=== PATIENT | female | born 1935 | race Caucasian/White ===

== ENCOUNTER 2017-06-08 10:41 | Observation (INO) | payer MEDICARE, BC ==
[~2017-06-08] VITALS: Ht 177.8 cm; Wt 80.2 kg
[2017-06-08] VITALS (19 sets, daily range): BP systolic 117–160; BP diastolic 64–92; PULSE 72–88; RESP 15–20; Ht 177.8 cm; Wt 80.2 kg
[2017-06-08] MEDS ORDERED: APIX2.5T PO (11:18)
[2017-06-08] MEDS ORDERED: FURO-110 PO (11:18)
[2017-06-08] MEDS ORDERED: EZET10TA3 PO (11:18)
[2017-06-08] MEDS ORDERED: METF500T4 PO (11:19)
[2017-06-08] MEDS ORDERED: LEVO25TA50 PO (11:19)
[2017-06-08] MEDS ORDERED: FER325 PO (11:20)
[2017-06-08] MEDS ORDERED: MEMA5TAB PO (11:20)
[2017-06-08] MEDS ORDERED: POTA-57 PO (11:21)
[2017-06-08] MEDS ORDERED: DONE5TAB46 PO (11:21)
[2017-06-08] MEDS ORDERED: CNC30T PO (11:22)
[2017-06-08] MEDS ORDERED: LIOT5TAB3 PO (11:23)
[2017-06-08] MEDS ORDERED: FLUT16SP17 NASAL (11:23)
[2017-06-08] MEDS ORDERED: BIFI10.5 PO (11:24)
[2017-06-08] MEDS ORDERED: PANT40TA3 PO (11:24)
[2017-06-08] MEDS ORDERED: DILT180C75 PO (11:25)
[2017-06-08] MEDS ORDERED: PARO30TA48 PO (11:26)
[2017-06-08] MEDS ORDERED: ALPR0.25 PO (11:26)
[2017-06-08 11:35] LABS: BASOPHILS % 0.6 % (0.0-2.0); EOSINOPHILS % 0.8 % (0.0-7.0); HEMATOCRIT 39.3 % (37.0-47.0); LYMPHOCYTES # 1.8 10^3/ul (0.8-2.9); LYMPHOCYTES % 33.3 % (15.0-51.0); MEAN CORPUSCULAR HEMOGLOBIN 29.1 pg (29.0-33.0); MEAN CORPUSCULAR HGB CONC 33.1 g/dl (32.0-37.0); MEAN CORPUSCULAR VOLUME 88.1 fl (82.0-101.0); MEAN PLATELET VOLUME 10.8 fl (7.4-10.4); MONOCYTE # 0.5 10^3/ul (0.3-0.9); MONOCYTES % 8.9 % (0.0-11.0); PLATELET COUNT 182 10^3/UL (140-415); RED BLOOD COUNT 4.46 10^6/ul (4.20-5.40); RED CELL DISTRIBUTION WIDTH 17.2 % (11.5-14.5); WHITE BLOOD COUNT 5.3 10^3/ul (4.8-10.8)
[2017-06-08 11:55] LABS: INR 0.93; PROTIME 12.5 Sec (12.2-14.2)
[2017-06-08 11:56] LABS: PARTIAL THROMBOPLASTIN TIME 26.8 Sec (25.0-35.0)
[2017-06-08 11:57] LABS: ALBUMIN/GLOBULIN RATIO 1.48; BILIRUBIN,INDIRECT 0.5 mg/dl (0-1.1); BILIRUBIN,TOTAL 0.5 mg/dl (0.2-1.3); TOTAL PROTEIN 6.7 g/dl (6.1-8.1)
[2017-06-08 11:59] LABS: CALCIUM 8.9 mg/dl (8.4-10.2); CREATININE 0.55 mg/dl (0.44-1.00); POTASSIUM 4.4 mmol/L (3.5-5.1)
[2017-06-08] MEDS ORDERED: VANCOMYCIN 1 GM in NS 250 ML IVPB SCH (13:10)
[2017-06-08] MEDS ORDERED: FENTAnyl 50 MCG/ML VIAL ONE (13:40)
[2017-06-08] MEDS ORDERED: PROPOFOL 100 ML ONE (13:41)
[2017-06-08] MEDS ORDERED: LIDOCAINE 1% (MDV) 20 ML INJ ONE (13:41)
[2017-06-08] MEDS ORDERED: POLYMYXIN/BACITRACIN 1L IRRIG ONE (13:48)
[2017-06-08] MEDS ORDERED: LIDOCAINE 2%/EPI MPF (SDV) 20 ML VIAL ONE (13:50)
[2017-06-08] MEDS ORDERED: LABETALOL HCL 20MG INJ IV PRN (15:30)
[2017-06-08] MEDS ORDERED: morphine (1 MG/ML) 10ML SYRINGE IV PRN (15:30)
[2017-06-08] MEDS ORDERED: FENTAnyl 50 MCG/ML VIAL IV PRN (15:30)
[2017-06-08] MEDS ORDERED: hydrALAzine 20 MG INJ IV PRN (15:30)
[2017-06-08] MEDS ORDERED: ONDANSETRON 4 MG INJ IV PRN ×2 (15:30→16:00)
--- NOTE | 2017-06-08 15:45 | OPR ---
Date/Time of Note Date/Time of Note DATE: 06/08/17 TIME: 15:40 Operative Report Procedure Date: Jun 08, 2017 Preoperative Diagnosis symptomatic sick sinus syndrome. 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 Risks including but not limited to risk of infection, bleeding complications, anesthesia related complications, NM, CVA, perforation, pneumothorax hemothorax, etc discussed with pt in detail. Patient was brought into into the Residential Property [facility] and placed in supine position. sedation was given. [] Left chest area was prepped and draped in regular sterile fashion. Left subclavian venogram was performed that showed patent subclavian vein and a small cephalic vein. AC groove area was anesthetized using 1% lidocaine with epi. A 3 cm incision was made in the AC groove area. Blunt dissection was carried out. Cephalic vein could not be well isolated. left subclavian vein cannulated using a micropuncture needle . Using modified Seldinger technique an 8 Vietnamese sheath was placed over it. Then , another J-wire into the sheet. The sheath was removed again and a new sheath was placed over the wire into the vein. RV lead was advanced under direct fluoroscopy and placed in the right ventricular low septum . Once a good position was found, threshold was checked which showed excellent threshold. It was screwed into place and threshold were checked again which showed good injury pattern and no diaphragmatic stimulation at 10 V an excellent thresholds. Then the sheath was peeled away. Another 8 Vietnamese sheath was placed over the second wire into the cephalic vein into the subclavian vein. Right atrial lead was advanced under direct fluoroscopy and placed into the right atrial appendage. Once a good position was found it was screwed into place. Thresholds were checked again which showed excellent injury pattern and no diaphragmatic assimilation at 10 V and good thresholds. Right atrial lead sheath was removed. Both leads were tied down using 0 Ethibond suture. Pocket was irrigated with antibiotic solution. At this time electrocardiogram was performed and it appears that the RV lead threshold has increased and R-wave drop once the stylet was removed. It was decided to reposition the RV lead. RV lead was repositioned over direct fluoroscopy multiple times once a perfect position was found and was put into place. Thresholds were checked again with the expectation that after when he was in relation at 10 V. The lead was checked again which showed good thresholds. Then leads were connected into the device. Device was placed into the pocket and sutured using 0 Ethibond suture. Wound was closed with 1 layer of 2.0 Vicryl and 2 layers of 3.0 Vicryl. Steri- Strip was applied and pressure dressing was applied. Patient tolerated procedure well with no complication and was transferred to the recovery room in stable condition. Immediate complication: none Please see physical chart for details regarding pacemaker information and thresholds. Conclusions: Successful implantation of dual-chamber permanent pacemaker SHALOM PRICE MD [facility] SHALOM PRICE MD Jun 08, 2017 15:45
[2017-06-08] MEDS ORDERED: VANCOMYCIN IV PER PHARMACY XX SCH (16:00)
--- NOTE | 2017-06-08 16:32 | RADRPT ---
PROCEDURE: X-ray Chest. CLINICAL INDICATION: Post device insertion. TECHNIQUE: Single view chest x-ray. COMPARISON: None available. FINDINGS: There are multiple radiodensities overlying the chest, which partially limits evaluation. There is a left-sided dual chamber pacemaker in place. There are atherosclerotic changes of the aort a. The cardiomediastinal silhouette is mildly enlarged. The lungs are clear without focal consolida tion, effusion, or pneumothorax. There are no acute osseous abnormalities. IMPRESSION: 1. Mild cardiomegaly. Left-sided dual chamber pacemaker in place. 2. Vascular calcifications consistent with atherosclerosis. RPTAT: HLBP .Bucky Reyes MD, MD Date Time Electronically viewed and signed by .Bucky Reyes MD, on 06/08/2017 16:32 .P/
--- NOTE | 2017-06-08 18:35 | HP ---
DATE OF ADMISSION: 06/08/2017 CHIEF COMPLAINT: Status post pacemaker placement. HISTORY OF PRESENT ILLNESS: This is an 82-year-old female with a past medical history of AFib with tachybrady syndrome, history of hypertension, diabetes, who presented to [facility] to undergo elective pacemaker placement. The patient states that she has been having ongoing atri al fibrillation complicated with episodes of bradycardia and sick sinus syndrome. As a result, her pump room operator, Dr. Price scheduled elective pacemaker placement. The patient underwent pacemaker pl acement successfully without any complications. Postoperatively, the patient was in recovery room, where she had no acute complaints, no chest pain, nausea, vomiting or shortness of breath. PAST MEDICAL HISTORY: History of tachybrady syndrome, history of hypertension, history of diabetes. PAST SURGICAL HISTORY: Multiple surgeries including cholecystectomy, parathyroid removal. ALLERGIES: TO PENICILLIN. SOCIAL HISTORY: Does not drink, smoke or do drugs. FAMILY HISTORY: Noncontributory. MEDICATIONS: The patient's medications have been reviewed and reconciled. REVIEW OF SYSTEMS: A 14-point review of systems was conducted. Pertinent positives stated in HPI, otherwise negative. PHYSICAL EXAMINATION: VITAL SIGNS: Blood pressure is 122/89, respirations 17, pulse 72, temperature 98.7. HEENT: Head is normocephalic. NECK: Supple. HEART: Regular rate. The patient has a dressing over a pacemaker, which is clean, dry and intact. LUNGS: Show diminished breath sounds at the bases. ABDOMEN: Soft, nontender to palpation. No rebound or guarding. EXTREMITIES: Negative for clubbing, cyanosis, edema. DERMATOLOGIC: No rashes. MUSCULOSKELETAL: No joint effusions. NEUROLOGIC: No focal deficits. LABORATORY DATA: Shows BMP and CBC within normal limits. ASSESSMENT AND PLAN: This is an 82-year-old female who presents with: 1. Sick sinus syndrome with tachybrady syndrome. The patient is status post pacemaker placement. P quang is to monitor the patient overnight on telemetry. Continue current medical management and follo w up with cardiology. 2. Diabetes. Continue Accu-Cheks, insulin sliding scale. 3. Hypertension. Continue current blood pressure regimen. 4. Hypothyroidism. Continue Synthroid and Cytomel. 5. Dyslipidemia. Continue Zetia. 6. Coronary artery disease. Continue medical management. 7. Cognitive decline. Continue Aricept and Namenda. 8. Gastrointestinal and deep venous thrombosis prophylaxis. Continue proton pump inhibitor and sequ ential leg squeezers. 9. Anxiety disorder. Continue Ativan. Please note I spent 25 minutes face to face time with the patient. The patient is FULL CODE. Dictated By: KARINE BRANCH/MIGDALIA Conf#: [id number] DID#: [id number]
--- NOTE | 2017-06-08 21:51 | RADRPT ---
Vent Rate: 77 bpm RR Interval: 0 msec VT Interval: 188 msec QRS Duration: 80 msec QT Interval: 418 msec QTC Interval: 473 msec P-R-T [place]: 41 - -6 - 19 degrees Normal sinus rhythm with sinus arrhythmia Low voltage QRS Borderline ECG Electronically Signed By: Ren Hillman [id number]
[2017-06-08] MEDS: DILTIAZEM (CD) 180 MG CAP PO SCH (21:55)
[2017-06-08] MEDS: FERROUS SULFATE (EC) 325 MG TAB PO SCH (21:56)
[2017-06-08] MEDS: EZETIMIBE 10 MG TAB PO SCH (21:56)
[2017-06-08] MEDS: ALPRAZOLAM 0.25 MG TAB PO PRN (21:56)
[2017-06-08] MEDS: DRONEDARONE HYDROCHLORIDE 400 MG TAB PO SCH (21:57)
[2017-06-08] MEDS: VANCOMYCIN 500MG/NS (PMX) 100 ML IVPB SCH (21:57)
[2017-06-08] MEDS: DONEPEZIL 5 MG TAB PO SCH (22:00)
[2017-06-08] MEDS: PANTOPRAZOLE (EC) 40 MG TAB PO SCH (22:10)
[2017-06-08] MEDS: MEMANTINE 5 MG TAB PO SCH (22:10)
[2017-06-08] MEDS: PAROXETINE 10 MG TAB PO SCH (22:11)
[2017-06-08] MEDS: DOCUSATE SODIUM 250 MG CAP PO SCH (22:50)
[2017-06-08] MEDS: ACETAMINOPHEN 325 MG TAB PO PRN (22:50)
[2017-06-09] VITALS (19 sets, daily range): BP systolic 93–141; BP diastolic 55–78; PULSE 73–90; RESP 12–22
[2017-06-09] MEDS ORDERED: VANCOMYCIN 750 MG in DEXTROSE 5% 150 ML IVPB SCH (01:00)
[2017-06-09] MEDS: LEVOTHYROXINE 25 MCG TAB PO SCH (06:48)
[2017-06-09 08:16] LABS: BASOPHILS % 0.4 % (0.0-2.0); EOSINOPHILS % 0.8 % (0.0-7.0); HEMATOCRIT 38.2 % (37.0-47.0); HEMOGLOBIN 12.3 g/dl (12.0-16.0); LYMPHOCYTES # 1.2 10^3/ul (0.8-2.9); LYMPHOCYTES % 24.5 % (15.0-51.0); MEAN CORPUSCULAR HEMOGLOBIN 29.3 pg (29.0-33.0); MEAN CORPUSCULAR HGB CONC 32.2 g/dl (32.0-37.0); MEAN PLATELET VOLUME 10.9 fl (7.4-10.4); MONOCYTE # 0.5 10^3/ul (0.3-0.9); MONOCYTES % 10.5 % (0.0-11.0); NEUTROPHIL # 3.1 10^3/ul (1.6-7.5); NEUTROPHILS % 63.6 % (39.0-77.0); PLATELET COUNT 155 10^3/UL (140-415); RED CELL DISTRIBUTION WIDTH 17.5 % (11.5-14.5); WHITE BLOOD COUNT 4.9 10^3/ul (4.8-10.8)
--- NOTE | 2017-06-09 08:25 | CONS ---
Date/Time of Note Date/Time of Note DATE: 06/09/17 TIME: 08:21 Consult Date/Type/Reason Admit Date/Time Jun 08, 2017 at 16:56 Initial Consult Date Type of Consultation: CARD Subjective CARDIOLOGY F/U S: D/W STAFF, Dr Escobar and son pt remain sin NSR NO CP OR PRESSURE. last night RN reports pt" not very compliant" O: General: no acute distress HEENT: NC/AT. pupils are equal. round. NECK: NO JVD. no stridor. CV: RRR. systolic murmur; no gallop or rubs. PULM: no wheezing or rhonchi. GI: SOFT, NT, ND, no rebound or guarding Extremity: trace B/L LE edema. no clubbing. neuro: awake and alert, OX3. Psych: calm and pleasant rectal: deferred chest: s/p PPM no bleeding . Objective Vital Signs Date Time Temp Pulse Resp B/P Pulse Ox O2 Delivery O2 Flow Rate FiO2 06/09/17 08:15 75 06/09/17 07:48 98.1 20 121/71 94 06/08/17 17:00 Nasal Cannula Intake and Output 06/08/17 06/08/17 06/09/17 14:59 22:59 06:59 Intake Total 400 ml Balance 400 ml Results/Medications Result Diagram: 06/09/17 0741 06/08/17 1125 Results 24 hrs Laboratory Tests Test 06/08/17 11:23 06/08/17 11:25 06/09/17 07:41 Bedside Glucose 103 White Blood Count 5.3 4.9 Red Blood Count 4.46 4.20 Hemoglobin 13.0 12.3 Hematocrit 39.3 38.2 Mean Corpuscular Volume 88.1 91.0 Mean Corpuscular Hemoglobin 29.1 29.3 Mean Corpuscular Hemoglobin Concent 33.1 32.2 Red Cell Distribution Width 17.2 H 17.5 H Platelet Count 182 155 Mean Platelet Volume 10.8 H 10.9 H Neutrophils % 56.0 63.6 Lymphocytes % 33.3 24.5 Monocytes % 8.9 10.5 Eosinophils % 0.8 0.8 Basophils % 0.6 0.4 Nucleated Red Blood Cells % 0.0 0.0 Neutrophils # 3.0 3.1 Lymphocytes # 1.8 1.2 Monocytes # 0.5 0.5 Eosinophils # 0.0 0.0 Basophils # 0.0 0.0 Nucleated Red Blood Cells # 0.0 0.0 Prothrombin Time 12.5 Prothrombin Time Ratio 1.0 INR International Normalized Ratio 0.93 Activated Partial Thromboplast Time 26.8 Sodium Level 145 H Potassium Level 4.4 Chloride Level 108 Carbon Dioxide Level 27 Anion Gap 14 Blood Urea Nitrogen 11 Creatinine 0.55 Glucose Level 111 Calcium Level 8.9 Total Bilirubin 0.5 Direct Bilirubin 0.00 Indirect Bilirubin 0.5 Aspartate Amino Transf (AST/SGOT) 27 Alanine Aminotransferase (ALT/SGPT) 47 Alkaline Phosphatase 96 Total Protein 6.7 Albumin 4.0 Globulin 2.70 Albumin/Globulin Ratio 1.48 Medications Current Medications Ondansetron HCl (Zofran Inj) 4 mg Q4H PRN IV NAUSEA AND/OR VOMITING Last administered on 06/08/17 17:34; Admin Dose 4 MG; Start 06/08/17 at 16:00 Alprazolam (Xanax) 0.25 mg TID PRN PO ANXIETY Last administered on 06/08/17 21:56; Admin Dose 0.25 MG; Start 06/08/17 at 16:00 Diltiazem HCl (Cardizem Cd) 180 mg DAILY PO Last administered on 06/08/17 21: 55; Admin Dose 180 MG; Start 06/08/17 at 16:00 EZETIMIBE (Zetia) 10 mg HS PO Last administered on 06/08/17 21:56; Admin Dose 10 MG; Start 06/08/17 at 21:00 Ferrous Sulfate (Ferrous Sulfate (Ec)) 325 mg BID PO Last administered on 06/08 21:56; Admin Dose 325 MG; Start 06/08/17 at 21:00 Furosemide (Lasix) 20 mg DAILY PO ; Start 06/09/17 at 09:00 Liothyronine Sodium 5 mcg 5 mcg DAILY PO ; Start 06/09/17 at 09:00 Vancomycin HCl (Vancocin) 100 ml @ 100 mls/hr Q12H IVPB Last administered on 06/08/17 21:57; Admin Dose 100 MLS/HR; Start 06/08/17 at 21:00 Pantoprazole (Protonix Tab) 40 mg DAILY PO Last administered on 06/08/17 22: 10; Admin Dose 40 MG; Start 06/08/17 at 17:30 Donepezil HCl (Aricept) 5 mg DAILY PO ; Start 06/08/17 at 22:00 Memantine (Namenda) 5 mg DAILY PO Last administered on 06/08/17 22:10; Admin Dose 5 MG; Start 06/08/17 at 22:00 Paroxetine HCl (Paxil) 30 mg DAILY PO Last administered on 06/08/17 22:11; Admin Dose 30 MG; Start 06/08/17 at 22:00 Acetaminophen (Tylenol Tab) 650 mg Q6H PRN PO PAIN AND OR ELEVATED TEMP Last administered on 06/08/17 22:50; Admin Dose 650 MG; Start 06/08/17 at 22:30 Docusate Sodium (Colace) 250 mg BID PO Last administered on 06/08/17 22:50; Admin Dose 250 MG; Start 06/08/17 at 22:30 Assessment/Plan Chief Complaint/Hosp Course 1. sick sinus syndrome s./p PPM 2. PAFIB 3. ASTHMA 4. Dyslipidemia 5. HTN Pacemaker was interrogated but appears that RV lead is pulled back. will need to do lead revision R/B/A D/W PT AND SON consent was obtained. Keep NPO after breakfast. cont other cardiac meds. SHALOM GLEASON MD FAC Problems: SHALOM GLEASON MD Jun 09, 2017 08:25
[2017-06-09 08:33] LABS: CALCIUM 8.2 mg/dl (8.4-10.2); CREATININE 0.64 mg/dl (0.44-1.00); MAGNESIUM 2.1 mg/dl (1.7-2.5); PHOSPHORUS 3.4 mg/dl (2.5-4.9); POTASSIUM 5.2 mmol/L (3.5-5.1)
[2017-06-09] MEDS ORDERED: DONEPEZIL 5 MG TAB PO SCH (09:00)
[2017-06-09] MEDS ORDERED: MEMANTINE 5 MG TAB PO SCH (09:00)
[2017-06-09] MEDS ORDERED: PAROXETINE 10 MG TAB PO SCH (09:00)
[2017-06-09] MEDS ORDERED: PANTOPRAZOLE (EC) 40 MG TAB PO SCH (09:00)
--- NOTE | 2017-06-09 09:13 | RADRPT ---
PROCEDURE: XR Chest. CLINICAL INDICATION: Pacemaker placement TECHNIQUE: A single AP view of the chest was obtained. COMPARISON: Chest x-ray dated 06/08/2017 FINDINGS: There is a left subclavian dual chamber pacemaker. Lung volumes are low with compressive changes and crowding of the central pulmonary vascular marking s. No focal airspace opacity, pleural effusion or pneumothorax is seen. The cardiomediastinal silho uette is within normal limits for size. The osseous structures are unremarkable. IMPRESSION: 1. Low lung volumes with compressive changes. No significant interval change. 2. Left subclavian dual chamber pacemaker. RPTAT: HH .Renay Wagner MD, MD Date Time Electronically viewed and signed by .Renay Wagner MD, on 06/09/2017 09:12 .G/
[2017-06-09] MEDS: ALPRAZOLAM 0.25 MG TAB PO PRN (09:23)
[2017-06-09] MEDS: ACETAMINOPHEN 325 MG TAB PO PRN (09:23)
[2017-06-09] MEDS: VANCOMYCIN 500MG/NS (PMX) 100 ML IVPB SCH ×2 (09:23→21:00)
[2017-06-09] MEDS: DILTIAZEM (CD) 180 MG CAP PO SCH (09:24)
[2017-06-09] MEDS: FERROUS SULFATE (EC) 325 MG TAB PO SCH ×2 (09:25→21:15)
[2017-06-09] MEDS: LIOTHYRONINE 5 MCG TAB PO SCH (09:25)
[2017-06-09] MEDS: PANTOPRAZOLE (EC) 40 MG TAB PO SCH (09:25)
[2017-06-09] MEDS: DONEPEZIL 5 MG TAB PO SCH (09:25)
[2017-06-09] MEDS: FUROSEMIDE 20 MG TAB PO SCH (09:25)
[2017-06-09] MEDS: PAROXETINE 10 MG TAB PO SCH (09:25)
[2017-06-09] MEDS: DOCUSATE SODIUM 250 MG CAP PO SCH ×2 (09:25→21:15)
[2017-06-09] MEDS: DRONEDARONE HYDROCHLORIDE 400 MG TAB PO SCH ×2 (09:25→17:21)
[2017-06-09] MEDS: MEMANTINE 5 MG TAB PO SCH (09:25)
--- NOTE | 2017-06-09 09:43 | PN ---
DATE: 06/09/2017 SUBJECTIVE: The patient is stable. No events overnight. No fevers, chills, nausea, vomiting, no s hortness of breath. OBJECTIVE: VITAL SIGNS: Blood pressure is 120/71, pulse 75, respirations 20, temperature 98.1. HEENT: Head is normocephalic. NECK: Supple. HEART: Regular rate. LUNGS: Show diminished breath sounds at the base. CHEST: The patient's dressing is clean, dry and intact. ABDOMEN: Soft, nontender to palpation without rebound or guarding. EXTREMITIES: Negative for clubbing, cyanosis, no edema. DERMATOLOGIC: No rashes. MUSCULOSKELETAL: No joint effusions. NEUROLOGIC: No change in exam. MEDICATIONS: The patient's medications have been reviewed. LABORATORY DATA: Shows CBC is within normal limits. BMP shows sodium 147, potassium 5.2, BUN 8, cr eatinine 0.64. ASSESSMENT AND PLAN: 1. Sick sinus syndrome, patient is status post pacemaker placement. The patient's pacemaker lead a ppears to be pulled back per cardiology. Will likely require revision. Will continue to monitor. Follow up with cardiology for any further recommendations. 2. Diabetes. Continue current insulin regimen. 3. Hypertension. Continue current blood pressure regimen. 4. Hypothyroidism. Continue Cytomel. 5. Hypernatremia. The patient has a free water deficit of approximately 1 liter. We will encourag e free water intake. 6. Mild hypokalemia. Continue to monitor. 7. Dyslipidemia. Continue Zetia. 8. Coronary artery disease. Continue medical management. 9. Cognitive decline. Continue Aricept and Namenda. 10. Anxiety disorder. Continue Ativan. 11. Gastrointestinal and deep venous thrombosis prophylaxis, continue proton pump inhibitors and se quential leg squeezers. Dictated By: KARINE BRANCH/MIGDALIA Conf#: [id number] DID#: [id number]
[2017-06-09] MEDS ORDERED: POLYMYXIN/BACITRACIN 1L IRRIG ONE (16:55)
[2017-06-09] MEDS ORDERED: LIDOCAINE 1%/EPI 30 ML INJ ONE (16:55)
[2017-06-09] MEDS ORDERED: LIDOCAINE 1% (MPF) 30 ML INJ ONE (16:55)
[2017-06-09] MEDS ORDERED: OXYMETAZOLINE 0.05% 15 ML NAS SPRAY NASAL ONE (17:15)
[2017-06-09] MEDS ORDERED: FENTAnyl 50 MCG/ML VIAL ONE (17:45)
[2017-06-09] MEDS ORDERED: FENTAnyl 50 MCG/ML VIAL IV PRN (18:00)
[2017-06-09] MEDS ORDERED: EPHEDrine SULFATE 50 MG/5 ML SYG IV PRN (18:00)
[2017-06-09] MEDS ORDERED: ONDANSETRON 4 MG INJ IV PRN (18:00)
[2017-06-09] MEDS ORDERED: VANCOMYCIN 1 GM (PMX) 250 ML ONE (18:05)
[2017-06-09] MEDS ORDERED: PHENYLephrine (100 MCG/ML) 5ML SYG ONE ×3 (18:07→18:34)
[2017-06-09] MEDS ORDERED: LIDOCAINE 1% (MDV) 50 ML INJ INJ ONE (18:34)
[2017-06-09] MEDS ORDERED: METOCLOPRAMIDE 10 MG INJ ONE (18:35)
[2017-06-09] MEDS ORDERED: PROPOFOL 40 ML ONE (18:35)
[2017-06-09] MEDS ORDERED: DEXAMETHASONE 4 MG/ML 1 ML INJ ONE (18:35)
[2017-06-09] MEDS ORDERED: ONDANSETRON 4 MG INJ ONE (18:35)
[2017-06-09] MEDS ORDERED: PROPOFOL 20 ML ONE (18:57)
[2017-06-09] MEDS ORDERED: EPHEDrine SULFATE 50 MG/5 ML SYG ONE (19:01)
--- NOTE | 2017-06-09 19:21 | OPR ---
Date/Time of Note Date/Time of Note DATE: 06/09/17 TIME: 19:16 Operative Report Procedure Date: Jun 09, 2017 Preoperative Diagnosis s/p PPM with lead dislodgment Postoperative Diagnosis same Surgeon see signature line Consulting Database Administrator N/A Anesthesia Type: other Estimated Blood Loss: minimal Transfusion none Specimen none Grafts/Implants none Complications none Procedure Description Cardiology procedure note Procedure performed: Pacemaker right ventricular lead revision ( st Abdiel MRI compatible device). Corporate Physical Security Supervisor : SHALOM GLEASON MD Anesthesia: Per anesthesiologist Clinical history indication: This is a pleasant 8-year-old female who underwent permanent pacemaker placement yesterday for her sick sinus syndrome tachybradycardia syndrome and paroxysmal atrial fibrillation. Patient was noted to have dislodgment of his her RV lead this morning. She was recommended to undergo RV lead revision. Procedure in detail: Written informed consent was obtained after risks benefits and alternatives discussed with the patient and her son in details. Risks including not limited to risk of infection vascular complication bleeding complication anesthesia via the complication christmas bell ringer discussed with them in detail. Patient was brought into the OR and placed in supine position. Left chest area was prepped and draped with the regular sterile fashion. Left chest area was anesthetized using 1% lidocaine with epi. An incision was made over the previous scar. Blunt dissection was carried out in the. His pacemaker was identified and removed from the pocket. Leads were disconnected and interrogated. It appeared that the RV was not in the right position. Then the sleeve around the lead in the RV was removed. Stylet was placed and the screw was unscrewed. The lead was repositioned to the right ventricular apex in a different position. Once a good position was found it was screwed into the place. Threshold was checked patient excellent pressure noted after arriving with stimulation at 10 V an excellent injury pattern. Please was tied down using 0 Ethibond to the tissue. Pocket was irrigated with antibiotic solution. RV lead was multiple times tested. Leads were connected to the device again. The device was placed into the pocket and tied down using 0 Ethibond suture. Wound was closed with A layer of 2-0 running suture followed by 2 layers of 3-0 Vicryl. Steri-Strip was applied. Pressure dressing was applied. Please see physical chart for details regarding pacemaker interrogation and formation. Patient tolerated procedure well with no complication. Patient is to be transferred to recovery room in stable condition. SHALOM GLEASON MD [facility] SHALOM GLEASON MD Jun 09, 2017 19:21
[2017-06-09] MEDS ORDERED: ACETAMINOPHEN 325 MG TAB PO PRN (19:30)
[2017-06-09] MEDS ORDERED: VANCOMYCIN IV PER PHARMACY XX SCH (19:30)
[2017-06-09] MEDS ORDERED: morphine 2 MG INJ IV PRN (19:30)
--- NOTE | 2017-06-09 20:39 | RADRPT ---
PROCEDURE: XR Chest. CLINICAL INDICATION: Dysrhythmia TECHNIQUE: Frontal chest x-ray was obtained. COMPARISON: Chest x-ray June 09. FINDINGS: Again noted is a dual lead pacemaker. There is cardiomegaly. There is a noncalcified round soft tiss ue mass at the medial right lung base unchanged. No hilar adenopathy is present. The lungs are clear of any infiltrate or mass. There is no effusion. 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 IMPRESSION: Cardiomegaly. No pneumonia or failure. Question right pericardial cyst versus hernia. Mass right cardiophrenic angle cannot be ruled out. R ecommend CT for further evaluation. .Sesar Lantigua MD, MD Date Time Electronically viewed and signed by .Sesar Lantigua MD, on 06/09/2017 20:39 .A/
[2017-06-09] MEDS: EZETIMIBE 10 MG TAB PO SCH (21:15)
[2017-06-10] VITALS: PULSE 72; PULSE 91
[2017-06-10] MEDS: ACETAMINOPHEN 325 MG TAB PO PRN (03:24)
[2017-06-10] MEDS: ALPRAZOLAM 0.25 MG TAB PO PRN (03:24)
[2017-06-10 04:00] VITALS: PULSE 96
[2017-06-10 05:17] VITALS: BP 129/70; RESP 20
[2017-06-10] MEDS: LEVOTHYROXINE 25 MCG TAB PO SCH (06:16)
[2017-06-10 07:52] VITALS: BP 118/70; RESP 17
--- NOTE | 2017-06-10 08:04 | CONS ---
Date/Time of Note Date/Time of Note DATE: 06/10/17 TIME: 08:01 Consult Date/Type/Reason Admit Date/Time Jun 08, 2017 at 16:56 Type of Consultation: CARD Subjective S: D/W STAFF, Dr Escobar pt remain sin NSR mild tenderness at site of incision only no bleeding O: General: no acute distress HEENT: NC/AT. pupils are equal. round. NECK: NO JVD. no stridor. CV: RRR. systolic murmur; no gallop or rubs. PULM: no wheezing or rhonchi. GI: SOFT, NT, ND, no rebound or guarding Extremity: trace B/L LE edema. no clubbing. neuro: awake and alert, OX3. Psych: calm and pleasant rectal: deferred chest: s/p PPM no bleeding . no hematoma Objective Vital Signs Date Time Temp Pulse Resp B/P Pulse Ox O2 Delivery O2 Flow Rate FiO2 06/10/17 07:52 98.4 88 17 118/70 98 06/09/17 20:07 Nasal Cannula 3.0 Intake and Output 06/09/17 06/09/17 06/10/17 15:00 23:00 07:00 Intake Total 300 ml Balance 300 ml Results/Medications Result Diagram: 06/09/1741 06/09/17 0741 Results 24 hrs Laboratory Tests Test 06/09/17 22:23 Vancomycin Level Trough 14.9 Medications Current Medications Ondansetron HCl (Zofran Inj) 4 mg Q4H PRN IV NAUSEA AND/OR VOMITING Last administered on 06/08/17 17:34; Admin Dose 4 MG; Start 06/08/17 at 16:00 Alprazolam (Xanax) 0.25 mg TID PRN PO ANXIETY Last administered on 06/10/17 03:24; Admin Dose 0.25 MG; Start 06/08/17 at 16:00 Diltiazem HCl (Cardizem Cd) 180 mg DAILY PO Last administered on 06/09/17 09: 24; Admin Dose 180 MG; Start 06/08/17 at 16:00 EZETIMIBE (Zetia) 10 mg HS PO Last administered on 06/09/17 21:15; Admin Dose 10 MG; Start 06/08/17 at 21:00 Ferrous Sulfate (Ferrous Sulfate (Ec)) 325 mg BID PO Last administered on 06/09 21:15; Admin Dose 325 MG; Start 06/08/17 at 21:00 Furosemide (Lasix) 20 mg DAILY PO Last administered on 06/09/17 09:25; Admin Dose 20 MG; Start 06/09/17 at 09:00 Liothyronine Sodium 5 mcg 5 mcg DAILY PO Last administered on 06/09/17 09:25 ; Admin Dose 5 MCG; Start 06/09/17 at 09:00 Vancomycin HCl (Vancocin) 100 ml @ 100 mls/hr Q12H IVPB Last administered on 06/09/17 09:23; Admin Dose 100 MLS/HR; Start 06/08/17 at 21:00 Pantoprazole (Protonix Tab) 40 mg DAILY PO Last administered on 06/09/17 09: 25; Admin Dose 40 MG; Start 06/08/17 at 17:30 Donepezil HCl (Aricept) 5 mg DAILY PO Last administered on 06/09/17 09:25; Admin Dose 5 MG; Start 06/08/17 at 22:00 Memantine (Namenda) 5 mg DAILY PO Last administered on 06/09/17 09:25; Admin Dose 5 MG; Start 06/08/17 at 22:00 Paroxetine HCl (Paxil) 30 mg DAILY PO Last administered on 06/09/17 09:25; Admin Dose 30 MG; Start 06/08/17 at 22:00 Acetaminophen (Tylenol Tab) 650 mg Q6H PRN PO PAIN AND OR ELEVATED TEMP Last administered on 06/10/17 03:24; Admin Dose 650 MG; Start 06/08/17 at 22:30 Docusate Sodium (Colace) 250 mg BID PO Last administered on 06/09/17 21:15; Admin Dose 250 MG; Start 06/08/17 at 22:30 Acetaminophen (Tylenol Tab) 650 mg Q4H PRN PO NON-CARDIAC PAIN LEVEL (1-3); Start 06/09/17 at 19:30 Morphine Sulfate (morphine) 1 mg Q1H PRN IV PAIN; Start 06/09/17 at 19:30 Assessment/Plan Chief Complaint/Hosp Course 1. sick sinus syndrome s./p PPM: with pacer lead dislogement s/p revision. 2. PAFIB 3. ASTHMA 4. Dyslipidemia 5. HTN Pacemaker was interrogated today again and personally reviewed. it shows normal function. : P 4, 0.635@0.6, I 530, RV 7, 0.5@0.4, I 490. cont current meds will start asa to replace eliquis for now and resume as outpt if indicated. cont other cardiac meds. dc planning today SHALOM GLEASON MD [facility] Problems: SHALOM GLEASON MD Jun 10, 2017 08:04
[2017-06-10 08:12] VITALS: PULSE 84
[2017-06-10 08:37] LABS: HEMOGLOBIN 11.7 g/dl (12.0-16.0); LYMPHOCYTES # 0.8 10^3/ul (0.8-2.9); LYMPHOCYTES % 19.6 % (15.0-51.0); MEAN CORPUSCULAR HEMOGLOBIN 28.7 pg (29.0-33.0); MEAN CORPUSCULAR HGB CONC 31.6 g/dl (32.0-37.0); MEAN CORPUSCULAR VOLUME 90.7 fl (82.0-101.0); MEAN PLATELET VOLUME 10.9 fl (7.4-10.4); MONOCYTE # 0.2 10^3/ul (0.3-0.9); MONOCYTES % 4.9 % (0.0-11.0); NEUTROPHIL # 2.9 10^3/ul (1.6-7.5); PLATELET COUNT 142 10^3/UL (140-415); RED BLOOD COUNT 4.08 10^6/ul (4.20-5.40); RED CELL DISTRIBUTION WIDTH 17.1 % (11.5-14.5); WHITE BLOOD COUNT 3.9 10^3/ul (4.8-10.8)
[2017-06-10] MEDS: DRONEDARONE HYDROCHLORIDE 400 MG TAB PO SCH (08:58)
[2017-06-10] MEDS: PANTOPRAZOLE (EC) 40 MG TAB PO SCH (08:59)
[2017-06-10] MEDS: DILTIAZEM (CD) 180 MG CAP PO SCH (09:00)
[2017-06-10] MEDS: DOCUSATE SODIUM 250 MG CAP PO SCH (09:00)
[2017-06-10] MEDS: PAROXETINE 10 MG TAB PO SCH (09:00)
[2017-06-10] MEDS ORDERED: ASPIRIN (EC) 81 MG TAB PO SCH (09:00)
[2017-06-10] MEDS: FERROUS SULFATE (EC) 325 MG TAB PO SCH (09:02)
[2017-06-10 09:03] LABS: ALBUMIN 3.2 g/dl (3.3-4.9); ALBUMIN/GLOBULIN RATIO 1.14; BILIRUBIN,INDIRECT 0.2 mg/dl (0-1.1); BILIRUBIN,TOTAL 0.2 mg/dl (0.2-1.3); CALCIUM 8.1 mg/dl (8.4-10.2); CREATININE 0.5 mg/dl (0.44-1.00); POTASSIUM 3.8 mmol/L (3.5-5.1)
[2017-06-10] MEDS: FUROSEMIDE 20 MG TAB PO SCH (09:03)
[2017-06-10] MEDS: MEMANTINE 5 MG TAB PO SCH (09:04)
[2017-06-10] MEDS: DONEPEZIL 5 MG TAB PO SCH (09:15)
[2017-06-10] MEDS: LIOTHYRONINE 5 MCG TAB PO SCH (09:15)
[2017-06-10] MEDS: VANCOMYCIN 500MG/NS (PMX) 100 ML IVPB SCH (09:24)
[2017-06-10 11:00] LABS: MAGNESIUM 2.1 mg/dl (1.7-2.5); PHOSPHORUS 2.7 mg/dl (2.5-4.9)
--- NOTE | 2017-06-10 11:38 | DS ---
DATE OF ADMISSION: 06/08/2017 DATE OF DISCHARGE: HOSPITAL COURSE: This is an 82-year-old female with a past medical history of AFib, tachybrady synd francis, history of hypertension, diabetes who presented to [facility] and underwent elective pacemaker placement. Following the placement, the patient was noted to have leads that wer e dislodged. Patient underwent revision by Dr. Price. Following the procedure, the patient had in terrogation today and it was noted to be normal. Patient, at this point, is stable and will be disc harged home, where she will be started on aspirin as her Eliquis will be discontinued per Dr. Price 's recommendations. The patient will follow up with her primary care physician and Dr. Price in 1 week's time. FINAL DIAGNOSES: 1. Sick sinus syndrome, status post pacemaker placement and revision. 2. Diabetes. Continue current insulin regimen. 3. Hypertension. Continue current blood pressure regimen. 4. Hypothyroidism. Continue Cytomel. 5. Hyponatremia. Continue current free water intake. 6. Mild hypokalemia. 7. Dyslipidemia. 8. Coronary artery disease. 9. Cognitive decline. 10. Anxiety disorder. FINAL MEDICATIONS: Please see reconciliation list. Please note I spent over 40 minutes of time preparing the patient's discharged. At time of discharge, the patient is stable, in no acute distress. Dictated By: KARINE BRANCH/NTS Conf#: [id number] DID#: [id number] CC: SHALOM PRICE MD;*EndCC*
[2017-06-10 11:58] VITALS: BP 101/65; RESP 17
--- NOTE | 2017-06-11 13:18 | RADRPT ---
Vent Rate: 84 bpm RR Interval: 0 msec DC Interval: 196 msec QRS Duration: 84 msec QT Interval: 412 msec QTC Interval: 486 msec P-R-T [place]: 24 - -6 - 5 degrees Normal sinus rhythm Normal ECG Electronically Signed By: Ash Watson [id number]
== END 2017-06-10 11:50 | disposition home or self-care (01) ==
LOC: SDS 10:41 → MS4 16:56 → INTOOBSV 16:56
PROVIDERS: ADMIT Internal Medicine Interventional Cardiology; ATTEND Internal Medicine Interventional Cardiology
DX: I49.5 Sick sinus syndrome (principal); E11.9 Type 2 diabetes mellitus without complications; I10 Essential (primary) hypertension; E03.9 Hypothyroidism, unspecified; E78.5 Hyperlipidemia, unspecified; I25.10 Atherosclerotic heart disease of native coronary artery without angina pectoris; F41.9 Anxiety disorder, unspecified; R41.81 Age-related cognitive decline; J45.909 Unspecified asthma, uncomplicated; E87.0 Hyperosmolality and hypernatremia; E87.6 Hypokalemia; I48.91 Unspecified atrial fibrillation; Z88.0 Allergy status to penicillin; Z90.49 Acquired absence of other specified parts of digestive tract
CPT/HCPCS: 33208; 33218; 71010; 71020; 80048; 80053; 80202; 82962; 83735; 83880; 84100; 85025; 85610; 85730; 93005; C1785; C1898; G0378; J2370; J2405; J3010; J3370; J1100; J2765

== ENCOUNTER 2018-10-21 05:52 | Observation (INO) | payer MEDICARE, BC ==
[2018-10-21] VITALS (20 sets, daily range): BP systolic 120–185; BP diastolic 67–93; PULSE 69–79; RESP 18–37; Ht 153.7 cm; Wt 78.1 kg
[~2018-10-21] VITALS: Ht 153.7 cm; Wt 78.1 kg
[~2018-10-21 05:52] MED LIST: ALPR0.25 PO; BIFI10.5 PO; CNC30T PO; DILT180C72 PO; DONE5TAB46 PO; EZET10TA31 PO; FER325 PO; FLUT16SP17 NASAL; FURO-110 PO; LEVO25TA50 PO; LIOT5TAB3 PO; MEMA5TAB PO; METF500T24 PO; PANT40TA3 PO; PARO30TA48 PO; POTA-57 PO
[2018-10-21] MEDS ORDERED: VANCOMYCIN 1 GM (PMX) 250 ML ONE (06:25)
[2018-10-21] MEDS ORDERED: VANCOMYCIN 1 GM 250 ML IVPB SCH (07:00)
[2018-10-21] MEDS ORDERED: SOD CHLORIDE 0.9% 1,000 ML IV SCH (07:00)
[2018-10-21] MEDS ORDERED: DONE5TAB46 PO (07:06)
[2018-10-21] MEDS ORDERED: APIX2.5T PO (07:12)
[2018-10-21] MEDS ORDERED: METF-849 PO (07:12)
--- NOTE | 2018-10-21 07:15 | PREAC ---
Date/Time of Note Date/Time of Note DATE: 10/21/18 TIME: 07:13 Anesthesia Eval and Record Evaluation Time Pre-Procedure Interview DATE: 10/21/18 TIME: 07:13 Age 83 Sex female NPO: 8 hrs Preoperative diagnosis PACEMAKER LEAD MALFUNCTION Planned procedure PACEMAKER LEAD REVISION Past Medical History Past Medical History: Includes Cardio: HTN, CAD, Arrythmia, CHF Endo: Diabetes GI: Obesity Surgery & Anesthesia Issues No known issue Meds Anticoagulation: No Beta Elan within 24 hr: No Reason Beta Elan not given: Pt. not on B-Elan Reported Medications Metformin* (Glucophage*) 500 Mg Tab, 500 MG PO WITH BREAKFAST LUNCH, #30 TAB 10/21/18 Apixaban* (Eliquis*) 2.5 Mg Tablet, 2.5 MG PO BID, TAB 10/21/18 Donepezil* (Aricept*) 5 Mg Tablet, 5 MG PO DAILY, TAB 10/21/18 Alprazolam* (Xanax*) 0.25 Mg Tablet, 0.25 MG PO TID PRN for ANXIETY, TAB 06/08/17 Paroxetine Hcl* (Paxil*) 30 Mg Tablet, 30 MG PO DAILY, TAB 06/08/17 Diltiazem Hcl* (Cardizem CD*) 180 Mg Cap.sr.24h, 180 MG PO DAILY, #30 CAP 06/08/17 Bifidobacterium Infantis (Align) 10.5 Mg Tab.chew, 10.5 MG PO QAM, TAB.CHEW 06/08/17 Pantoprazole* (Protonix*) 40 Mg Tablet.dr, 40 MG PO DAILY, TAB 06/08/17 Liothyronine Sodium* (Cytomel*) 5 Mcg Tablet, 5 MCG PO DAILY, TAB 06/08/17 Fluticasone Propionate* (Fluticasone Propionate* Nasal) 50 Mcg/[place] - 16 Gm [place].susp, 2 SPRAYS NASAL DAILY, #1 BOTTLE TO EACH NOSTRIL 06/08/17 Cinacalcet* (Sensipar*) 30 Mg Tab, 30 MG PO on wednesday, TAB 06/08/17 Donepezil* (Aricept*) 5 Mg Tablet, 5 MG PO DAILY, TAB 06/08/17 Potassium Chloride* (Klor-Con*) 20 Meq Tabsr, 20 MEQ PO DAILY, TAB.SA 06/08/17 Memantine* (Namenda*) 5 Mg Tablet, 5 MG PO DAILY, #30 TAB 06/08/17 Ferrous Sulfate* (Ferrous Sulfate*) 325 Mg Tabec, 325 MG PO BID, TAB 06/08/17 Levothyroxine Sodium* (Levoxyl*) 25 Mcg Tablet, 25 MCG PO BEFORE BREAKFAST, #30 TAB 06/08/17 Furosemide* (Lasix*) 20 Mg Tablet, 20 MG PO DAILY, TAB 06/08/17 Ezetimibe* (Zetia*) 10 Mg Tablet, 10 MG PO HS, TAB 06/08/17 Discontinued Reported Medications Metformin Hcl* (Metformin Hcl*) 500 Mg Tablet, 500 MG PO WITH BREAKFAST DINNE, #30 TAB 06/08/17 Current Medications Sodium Chloride 1,000 ml @ 0 mls/hr Q0M IV Last administered on 10/21/18at 06:44; Admin Dose 25 MLS/HR; Start 10/21/18 at 07:00; Stop 10/21/18 at 16:00 Vancomycin HCl 250 ml @ 125 mls/hr OC IVPB Last administered on 10/21/18at 06:44; Admin Dose 125 MLS/HR; Start 10/21/18 at 07:00; Stop 10/21/18 at 08:59 Bacitracin/ Polymyxin B Sulfate (Pb Solution) 1,000 ml ONCE ONCE IRR ; Start 10/21/18 at 07:30; Stop 10/21/18 at 07:31 Meds reviewed: Yes Allergies Coded Allergies: Penicillins (Verified Allergy, Unknown, rash, 06/08/17) codeine (Verified Allergy, Unknown, swelling n/v, 06/08/17) hydrocodone (Verified Allergy, Unknown, swelling n/v, 06/08/17) meperidine (Verified Allergy, Unknown, 10/21/18) Allergies Reviewed: Yes Labs/Studies Labs Reviewed: Reviewed by anesthesiologist Result Diagram: 10/21/18618 Laboratory Tests 10/21/18 06:19 test: N/A Pre-procedure Exam Last vitals Vital Signs Date Temp Pulse Resp B/P (MAP) Pulse Ox O2 O2 Flow FiO2 Time Delivery Rate 10/21/18 98.5 69 18 141/74 96 Room Air 06:50 (96) Airway: Adequate mouth opening, Adequate thyromental dist Mallampati: Mallampati II Teeth: Normal Lung: Normal Heart: Normal ASA Physical Status ASA physical status: 3 Emergency: None Planned Anesthetic General/MAC: MAC Planned Pain Management Parenteral pain med Pre-operative Attestations Prior to commencing anesthesia and surgery, the patient was re-evaluated, there was verification of: *The patient's identity *The results of appropriate recent lab work and preoperative vital signs *The above evaluation not changing prior to induction *Anesthetic plan, risk benefits, alternative and complications discussed with patient/family; questions answered; patient/family understands, accepts and wishes to proceed. CHAPARRO SOMMERS Oct 21, 2018 07:15
[2018-10-21] MEDS ORDERED: PRED5TAB ORAL (07:19)
[2018-10-21] MEDS ORDERED: RANI150T35 PO (07:19)
[2018-10-21] MEDS ORDERED: DIGO125T ORAL (07:19)
[2018-10-21] MEDS ORDERED: DRON400T2 PO (07:19)
[2018-10-21] MEDS ORDERED: SOD CHLORIDE 0.9% 500 ML ONE (07:23)
[2018-10-21] MEDS ORDERED: LIDOCAINE 1%/EPI (1:100,000) (MDV) 20 ML ONE (07:23)
[2018-10-21] MEDS ORDERED: POLYMYXIN/BACITRACIN 1L IRRIG IRR ONE (07:30)
[2018-10-21] MEDS ORDERED: MIDAZOLAM 1 MG/ML 2 ML INJ ONE ×2 (07:37→07:38)
[2018-10-21] MEDS ORDERED: PROPOFOL 40 ML ONE (07:38)
[2018-10-21] MEDS ORDERED: FENTAnyl 50 MCG/ML VIAL ONE (07:38)
[2018-10-21] MEDS ORDERED: LIDOCAINE 2% (SDV) 5 ML INJ ONE (07:38)
[2018-10-21] MEDS ORDERED: IOHEXOL 350MG/ML 50 ML BTL ONE (08:41)
[2018-10-21] MEDS ORDERED: VANCOMYCIN IV PER PHARMACY XX SCH (10:00)
--- NOTE | 2018-10-21 10:06 | OPR ---
Date/Time of Note Date/Time of Note DATE: 10/21/18 TIME: 09:56 Operative Report Procedure Date: Oct 21, 2018 Preoperative Diagnosis Sick sinus syndrome. RV lead dislogement Postoperative Diagnosis same Operation/Procedure Performed RV lead extraction new RV lead placement Surgeon see signature line Cubing Machine Tender Max Anesthesia Type: other Estimated Blood Loss: minimal Transfusion none Specimen old RV lead removed Grafts/Implants none Complications none Procedure Description Procedure performed: Left subclavian venogram and radiological interpretations Extraction of the right old RV lead Placement of new right ventricular lead and attaching to the old MRI compatible [place] device Fluoroscopy and supervision Intracardiac electrocardiogram Indication: Sick sinus syndrome. 83-year-old pleasant female with sick sinus syndrome who has had a pacemaker placed in about a year and a half ago. The RV lead had dislodged initially after the procedure which was revised and placed back in. It has been functioning fine up until a few weeks ago after almost a year and a half was noted that the RV lead is been dislodged again. It was decided to bring the patient into extracted old RV lead in place a new RV lead. Anesthesia: Per anesthesiologist Healthcare Financial Analyst: Shalom Price MD Procedure in detail: Written informed consent was obtained after risks benefits and alternatives discussed with the patient and family in detail. Risks including but not limited to risk of infection, bleeding complications, anesthesia related complications, [place], CVA, perforation, pneumothorax hemothorax, etc discussed with pt in detail. Patient was brought into into the Catalyst Operator Chief and placed in supine position. sedation was given anesthesia. Left chest area was prepped and draped in regular sterile fashion. Left subclavian venogram was performed AC groove area was anesthetized using 1% lidocaine with epi. A 5 cm incision was made in the AC groove area over the previous scar.. Blunt dissection was carried out. Old pacemaker was identified and removed. The right ventricular lead was isola leonides. It was disconnected with the device. The sutures were disconnected. It was noted on the fluoroscopy it had moved to the right atrium. Stylet was placed in and the lead was able to be pulled out with minimal difficulty actually. Then I try to cannulate the subclavian vein which was unsuccessful. Blunt dissection was carried out andCephalic vein was isolated. It was cannulated using a micropuncture needle and an BMW wire was advanced through into the inferior vena cava. Micropuncture sheath was placed over it. BMW wire was removed and a J-wire was advanced through it. Then the micropuncture sheath was removed and an 6 Spanish sheath was placed over into the cephalic vein. RV lead was advanced under direct fluoroscopy and placed in the right vent ricular low septum /apex. . Once a good position was found, threshold was checked which showed excellent threshold. It was screwed into place and threshold were checked again which showed good injury pattern and no diaphragmatic stimulation at 10 V an excellent thresholds. Then the sheath was peeled away. Be lead was tied down using 0 Ethibond suture. Pocket was irrigated with antibiotic solution. The lead was checked again which showed good thresholds. Then leads were connected into the device. Device was placed into the pocket and sutured using 0 Ethibond suture. Wound was closed with 1 layer of 2.0 Vicryl and 2 layers of 3.0 Vicryl. Steri- Strip was applied and pressure dressing was applied. Patient tolerated procedure well with no complication and was transferred to the recovery room in stable condition. Immediate complication: none Please see physical chart for details regarding pacemaker information and thresholds. Conclusions: Successful lead extraction of the right ventricular lead With placement of new right ventricular lead and connected to the old pacemaker battery SHALOM PRICE MD LOCATED WITHIN [facility] SHALOM PRICE MD Oct 21, 2018 10:06
--- NOTE | 2018-10-21 10:21 | PAC ---
Date/Time of Note Date/Time of Note DATE: 10/21/18 TIME: 10:20 Post-Anesthesia Notes Post-Anesthesia Note Last documented vital signs Vital Signs Date Temp Pulse Resp B/P (MAP) Pulse Ox O2 O2 Flow FiO2 Time Delivery Rate 10/21/18 98.5 69 18 141/74 96 Room Air 1020 (96) Activity: WNL Respiratory function: WNL Cardiovascular function: WNL Mental status: Baseline Pain reasonably controlled: Yes Hydration appropriate: Yes Nausea/Vomiting absent: Yes CHAPARRO SOMMERS Oct 21, 2018 10:21
[2018-10-21] MEDS ORDERED: ONDANSETRON 4 MG INJ IV PRN (10:30)
[2018-10-21] MEDS ORDERED: LABETALOL HCL 20MG INJ IV PRN (10:30)
[2018-10-21] MEDS ORDERED: EPHEDrine SULFATE 50 MG/5 ML SYG IV PRN (10:30)
[2018-10-21] MEDS ORDERED: hydrALAzine 20 MG INJ IV PRN (10:30)
[2018-10-21] MEDS ORDERED: FENTAnyl 50 MCG/ML VIAL IV PRN ×2 (10:30)
[2018-10-21] MEDS ORDERED: MIDAZOLAM 1 MG/ML 2 ML INJ IV PRN (10:30)
[2018-10-21] MEDS ORDERED: PROPOFOL 20 ML ONE (11:13)
[2018-10-21] MEDS ORDERED: EPHEDrine SULFATE 50 MG/5 ML SYG ONE (11:40)
[2018-10-21] MEDS: ACETAMINOPHEN 325 MG TAB PO PRN ×2 (13:04→20:08)
--- NOTE | 2018-10-21 14:58 | HP ---
DATE OF ADMISSION: 10/21/2018 CHIEF COMPLAINT: Status post pacemaker placement. HISTORY OF PRESENT ILLNESS: This is an 83-year-old female with a past medical history of hypertensio n, history of tachybrady syndrome, history of COPD, asthma, history of dyslipidemia, history of obesi ty who presents to [facility] to undergo placement of a new right ventricular lead of a pacemaker. The patient had a history of sick sinus syndrome and a year and a half ago had a pac emaker placed, however patient had dislodgement of her right ventricular lead. The patient has been functioning and the pacemaker has been functioning fine until a few weeks ago when the patient noted that her right ventricular lead had been dislodged again. As a result, the patient came back to [facility] and underwent placement of a new right ventricular lead by Dr. Price. Postoperatively, the patient was admitted to recovery for observation. Upon my evaluation, the patient is stable. Denies fevers, chills, nausea or vomiting. PAST MEDICAL HISTORY: Includes history of sick sinus syndrome, history of hypertension, COPD, asthma , dyslipidemia. PAST SURGICAL HISTORY: Status post pacemaker placement, history of ortho surgery. FAMILY HISTORY: No significant family history of kidney disease. MEDICATIONS: The patient's medications have been reviewed and reconciled. ALLERGIES: PLEASE SEE LIST. REVIEW OF SYSTEMS: A 14-point review of systems was positive as seen in HPI, otherwise negative. PHYSICAL EXAMINATION: VITAL SIGNS: Blood pressure is 136/67, respirations 20, pulse 75, temperature 98.6. HEENT: Head is normocephalic. NECK: Supple. HEART: Regular rate. LUNGS: Show diminished breath sounds at base. ABDOMEN: Soft, nontender to palpation without rebound or guarding. CHEST: Patient has noted pacemaker on the left upper chest wall. EXTREMITIES: Negative for clubbing, cyanosis, no edema. NEUROLOGIC: No focal deficits. DERMATOLOGY: No rashes. MUSCULOSKELETAL: No joint effusion. MEDICATIONS: Have been reviewed. LABORATORY DATA: Shows sodium 145, bicarbonate 32, BUN 13, creatinine 0.71. Patient's CBC was revie wed. ASSESSMENT AND PLAN: This is an 83-year-old female who presents with: 1. Right hip status. 2. Sick sinus syndrome with right ventricular lead dislodgement. The patient is status post [facility] ion of the right old lead, replacement of new right ventricular lead. Plan is to observe the patient . We will monitor the patient on telemetry. Follow up with cardiology for any recommendations. 2. Hypertension. Continue current blood pressure regimen. 3. Dyslipidemia. Continue statin therapy. 4. Depression. Continue Paxil. 5. Anxiety disorder, continue Xanax. 6. History of cognitive . Continue Aricept. 7. History of hypothyroidism. 8. Gastrointestinal and deep venous thrombosis prophylaxis. Continue PPIs, sequential leg squeezes. 9. Hypernatremia. Will encourage free water intake. Monitor sodium level. I spent an additional 30 minutes in [id number] time with the patient and code status. The toni liz is FULL CODE. Dictated By: KARINE BRANCH/MIGDALIA Conf#: [id number] DID#: [id number]
[2018-10-21] MEDS: DRONEDARONE HYDROCHLORIDE 400 MG TAB PO SCH (20:08)
[2018-10-21] MEDS: FERROUS SULFATE (EC) 325 MG TAB PO SCH (20:08)
[2018-10-21] MEDS: ALPRAZOLAM 0.25 MG TAB PO PRN (20:18)
[2018-10-21] MEDS ORDERED: PAROXETINE 10 MG TAB PO SCH (21:00)
[2018-10-21] MEDS ORDERED: EZETIMIBE 10 MG TAB PO SCH (21:00)
[2018-10-21] MEDS ORDERED: RANITIDINE 150 MG TAB PO SCH (21:00)
[2018-10-22] VITALS: BP 155/85; PULSE 68; PULSE 70; RESP 18
[2018-10-22] MEDS: ACETAMINOPHEN 325 MG TAB PO PRN ×2 (02:06→08:31)
[2018-10-22 04:00] VITALS: BP 156/83; PULSE 70; PULSE 80; RESP 18
[2018-10-22] MEDS ORDERED: VANCOMYCIN HCL 1.25 GM in SOD CHLORIDE 0.9% 250 ML IVPB SCH (04:00)
[2018-10-22] MEDS ORDERED: LEVOTHYROXINE 25 MCG TAB PO SCH (07:00)
[2018-10-22 07:51] VITALS: BP 166/84; PULSE 80; RESP 22
--- NOTE | 2018-10-22 08:06 | PN ---
Date/Time of Note Date/Time of Note DATE: 10/22/18 TIME: 08:04 Assessment/Plan VTE Prophylaxis Risk score (from Nsg)>0 risk: 6 SCD applied (from Nsg): Yes Pharmacological prophylaxis: other Lines/Catheters IV Catheter Type (from Nrsg): Peripheral IV Urinary Cath still in place: No Assessment/Plan Hospital Course HISTORY OF PRESENT ILLNESS: This is an 83-year-old female with a past medical history of hypertension, history of tachybrady syndrome, history of COPD, asthma, history of dyslipidemia, history of obesity who presents to [facility] to undergo placement of a new right ventricular lead of a pacemaker. The patient had a history of sick sinus syndrome and a year and a half ago had a pacemaker placed, however patient had dislodgement of her right ventricular lead. The patient has been functioning and the pacemaker has been functioning fine until a few weeks ago when the patient noted that her right ventricular lead had been dislodged again. As a result, the patient came back to [facility] and underwent placement of a new right ventricular lead by Dr. Price. no significant event overnight the patient is stable. Denies fevers, chills, nausea or vomiting. REVIEW OF SYSTEMS: A 14-point review of systems was positive as seen in HPI, otherwise negative. PHYSICAL EXAMINATION: HEENT: Head is normocephalic. NECK: Supple. HEART: Regular rate. LUNGS: Show diminished breath sounds at base. ABDOMEN: Soft, nontender to palpation without rebound or guarding. CHEST: Patient has noted pacemaker on the left upper chest wall. EXTREMITIES: Negative for clubbing, cyanosis, no edema. NEUROLOGIC: No focal deficits. DERMATOLOGY: No rashes. MUSCULOSKELETAL: No joint effusion. MEDICATIONS: Have been reviewed. ASSESSMENT AND PLAN: This is an 83-year-old female who presents with: 1. Right hip status. 2. Sick sinus syndrome with right ventricular lead dislodgement. The patient is status post extraction of the right old lead, replacement of new right ventricular lead. Plan is to observe the patient. We will monitor the patient on telemetry. Follow up with cardiology for any recommendations. 2. Hypertension. Continue current blood pressure regimen. 3. Dyslipidemia. Continue statin therapy. 4. Depression. Continue Paxil. 5. Anxiety disorder, continue Xanax. 6. History of cognitive impairment. Continue Aricept. 7. History of hypothyroidism. 8. Gastrointestinal and deep venous thrombosis prophylaxis. Continue PPIs, sequential leg squeezes. 9. Hypernatremia. Will encourage free water intake. Monitor sodium level. Result Diagram: 10/22/18 0454 10/22/18 0455 Results 24hrs Laboratory Tests Test 10/22/18 04:54 10/22/18 04:55 White Blood Count 5.3 # Red Blood Count 4.07 L Hemoglobin 11.7 L Hematocrit 35.9 L Mean Corpuscular Volume 88.2 Mean Corpuscular Hemoglobin 28.7 L Mean Corpuscular Hemoglobin Concent 32.6 Red Cell Distribution Width 16.1 H Platelet Count 149 Mean Platelet Volume 11.6 H Immature Granulocytes % 0.400 Neutrophils % 60.2 Lymphocytes % 27.6 Monocytes % 10.6 Eosinophils % 1.0 Basophils % 0.2 Nucleated Red Blood Cells % 0.0 Immature Granulocytes # 0.020 Neutrophils # 3.2 Lymphocytes # 1.5 Monocytes # 0.6 Eosinophils # 0.1 Basophils # 0.0 Nucleated Red Blood Cells # 0.0 Digoxin Level 0.8 L Sodium Level 144 Potassium Level 3.8 Chloride Level 104 Carbon Dioxide Level 34 H Anion Gap 6 Blood Urea Nitrogen 7 Creatinine 0.57 Est Glomerular Filtrat Rate mL/min Glucose Level 128 Calcium Level 9.2 Total Bilirubin 0.6 Direct Bilirubin 0.00 Indirect Bilirubin 0.6 Aspartate Amino Transf (AST/SGOT) 28 Alanine Aminotransferase (ALT/SGPT) 44 Alkaline Phosphatase 53 Total Protein 5.9 #L Albumin 3.5 Globulin 2.40 Albumin/Globulin Ratio 1.45 Exam/Review of Systems Exam Vitals Vital Signs Date Temp Pulse Resp B/P (MAP) Pulse Ox O2 O2 Flow FiO2 Time Delivery Rate 10/22/18 98.0 80 22 166/84 93 Room Air 07:51 (111) 10/21/18 2.0 12:00 Intake and Output 10/21/18 10/21/18 10/22/18 1515:00 23:00 07:00 IntakeIntake Total 100 ml 480 ml 750 ml OutputOutput Total 450 ml BalanceBalance 100 ml 30 ml 750 ml Results Results 24hrs Laboratory Tests Test 10/22/18 04:54 10/22/18 04:55 White Blood Count 5.3 # Red Blood Count 4.07 L Hemoglobin 11.7 L Hematocrit 35.9 L Mean Corpuscular Volume 88.2 Mean Corpuscular Hemoglobin 28.7 L Mean Corpuscular Hemoglobin Concent 32.6 Red Cell Distribution Width 16.1 H Platelet Count 149 Mean Platelet Volume 11.6 H Immature Granulocytes % 0.400 Neutrophils % 60.2 Lymphocytes % 27.6 Monocytes % 10.6 Eosinophils % 1.0 Basophils % 0.2 Nucleated Red Blood Cells % 0.0 Immature Granulocytes # 0.020 Neutrophils # 3.2 Lymphocytes # 1.5 Monocytes # 0.6 Eosinophils # 0.1 Basophils # 0.0 Nucleated Red Blood Cells # 0.0 Digoxin Level 0.8 L Sodium Level 144 Potassium Level 3.8 Chloride Level 104 Carbon Dioxide Level 34 H Anion Gap 6 Blood Urea Nitrogen 7 Creatinine 0.57 Est Glomerular Filtrat Rate mL/min Glucose Level 128 Calcium Level 9.2 Total Bilirubin 0.6 Direct Bilirubin 0.00 Indirect Bilirubin 0.6 Aspartate Amino Transf (AST/SGOT) 28 Alanine Aminotransferase (ALT/SGPT) 44 Alkaline Phosphatase 53 Total Protein 5.9 #L Albumin 3.5 Globulin 2.40 Albumin/Globulin Ratio 1.45 Medications Medication Current Medications Vancomycin HCl (Vanco Iv Per Pharmacy) VANCOMYCIN PER PHARMACY PER PROTOCOL XX ; Start 10/21/18 at 10:00 Alprazolam (Xanax) 0.25 mg TID PRN PO ANXIETY Last administered on 10/21/18at 20:18; Admin Dose 0.25 MG; Start 10/21/18 at 10:00 Digoxin (Digoxin) 0.125 mg DAILY@1300 PO ; Start 10/22/18 at 13:00 Donepezil HCl (Aricept) 5 mg DAILY PO ; Start 10/22/18 at 09:00 Dronedarone (Multaq) 400 mg BID PO Last administered on 10/21/18 20:08; Admin Dose 400 MG; Start 10/21/18 at 21:00 EZETIMIBE (Zetia) 10 mg HS PO Last administered on 10/21/18at 20:08; Admin Dose 10 MG; Start 10/21/18 at 21:00 Ferrous Sulfate (Ferrous Sulfate (Ec)) 325 mg BID PO Last administered on 10/21/18at 20:08; Admin Dose 325 MG; Start 10/21/18 at 21:00 Furosemide (Lasix) 20 mg DAILY PO ; Start 10/22/18 at 09:00 Levothyroxine Sodium (Synthroid) 25 mcg BEFORE BREAKFAST PO Last administered on 10/22/18at 06:49; Admin Dose 25 MCG; Start 10/22/18 at 07:00 Liothyronine Sodium (Cytomel) 5 mcg DAILY PO ; Start 10/22/18 at 09:00 Ranitidine HCl (Zantac) 150 mg HS PO Last administered on 10/21/18at 20:08; Admin Dose 150 MG; Start 10/21/18 at 21:00 Acetaminophen (Tylenol Tab) 650 mg Q4H PRN PO MILD PAIN(1-3)OR ELEVATED TEMP Last administered on 10/22/18at 02:06; Admin Dose 650 MG; Start 10/21/18 at 10:30 Vancomycin HCl 1.25 gm/Sodium Chloride 250 ml @ 83.333 mls/ hr Q24H IVPB Last administered on 10/22/18at 03:20; Admin Dose 83.333 MLS/HR; Start 10/22/18 at 04:00 Influenza Virus Vaccine Quadrival (Fluzone) 0.5 ml ONCE ONCE IM* ; Start 10/22/18 at 11:00; Stop 10/22/18 at 11:01 Paroxetine HCl (Paxil) 30 mg QHS PO Last administered on 10/21/18at 20:30; Admin Dose 30 MG; Start 10/21/18 at 21:00 ABEL GAITAN DO Oct 22, 2018 08:06
[2018-10-22 08:26] VITALS: PULSE 83
[2018-10-22] MEDS: DRONEDARONE HYDROCHLORIDE 400 MG TAB PO SCH (08:30)
[2018-10-22] MEDS: FERROUS SULFATE (EC) 325 MG TAB PO SCH (08:30)
[2018-10-22] MEDS ORDERED: FUROSEMIDE 20 MG TAB PO SCH (09:00)
[2018-10-22] MEDS ORDERED: LIOTHYRONINE 5 MCG TAB PO SCH (09:00)
[2018-10-22] MEDS ORDERED: PAROXETINE 10 MG TAB PO SCH (09:00)
[2018-10-22] MEDS ORDERED: DONEPEZIL 5 MG TAB PO SCH (09:00)
[2018-10-22 11:38] VITALS: BP 158/78; PULSE 63; RESP 18
[2018-10-22] MEDS: ALPRAZOLAM 0.25 MG TAB PO PRN (12:01)
[2018-10-22 12:10] VITALS: PULSE 73
--- NOTE | 2018-10-22 12:34 | CONS ---
Consult Date/Type/Reason Admit Date/Time Oct 21, 2018 at 11:24 Initial Consult Date Date/Time of Note DATE: 10/22/18 TIME: 12:32 Subjective Cardiology note Subjective: Patient with minimal chest wall tenderness on palpitation has had some nausea but improving wants to go home Objective: General: no acute distress HEENT: NC/AT. pupils are equal. round. NECK: NO JVD. no stridor. CV: RRR. systolic murmur; no gallop or rubs. PULM: no wheezing or rhonchi. GI: SOFT, NT, ND, no rebound or guarding Extremity: trace B/L LE edema. no clubbing. neuro: awake and alert, OX3. Psych: calm and pleasant rectal: deferred Chest: Left-sided chest with minimal ecchymosis minimal tenderness. No hematoma Pacemaker was interrogated personally reviewed which is normal function Objective Vitals Vital Signs Date Temp Pulse Resp B/P (MAP) Pulse Ox O2 O2 Flow FiO2 Time Delivery Rate 10/22/18 73 12:10 10/22/18 98.0 18 158/78 97 Room Air 11:38 (104) 10/21/18 2.0 12:00 Intake and Output 10/21/18 10/21/18 10/22/18 1515:00 23:00 07:00 IntakeIntake Total 100 ml 480 ml 750 ml OutputOutput Total 450 ml BalanceBalance 100 ml 30 ml 750 ml Results/Medications Result Diagram: 10/22/18 0454 10/22/18 0455 Results 24 hrs Laboratory Tests Test 10/22/18 04:54 10/22/18 04:55 White Blood Count 5.3 # Red Blood Count 4.07 L Hemoglobin 11.7 L Hematocrit 35.9 L Mean Corpuscular Volume 88.2 Mean Corpuscular Hemoglobin 28.7 L Mean Corpuscular Hemoglobin Concent 32.6 Red Cell Distribution Width 16.1 H Platelet Count 149 Mean Platelet Volume 11.6 H Immature Granulocytes % 0.400 Neutrophils % 60.2 Lymphocytes % 27.6 Monocytes % 10.6 Eosinophils % 1.0 Basophils % 0.2 Nucleated Red Blood Cells % 0.0 Immature Granulocytes # 0.020 Neutrophils # 3.2 Lymphocytes # 1.5 Monocytes # 0.6 Eosinophils # 0.1 Basophils # 0.0 Nucleated Red Blood Cells # 0.0 Digoxin Level 0.8 L Sodium Level 144 Potassium Level 3.8 Chloride Level 104 Carbon Dioxide Level 34 H Anion Gap 6 Blood Urea Nitrogen 7 Creatinine 0.57 Est Glomerular Filtrat Rate mL/min Glucose Level 128 Calcium Level 9.2 Total Bilirubin 0.6 Direct Bilirubin 0.00 Indirect Bilirubin 0.6 Aspartate Amino Transf (AST/SGOT) 28 Alanine Aminotransferase (ALT/SGPT) 44 Alkaline Phosphatase 53 Total Protein 5.9 #L Albumin 3.5 Globulin 2.40 Albumin/Globulin Ratio 1.45 Home Meds Reported Medications Ranitidine Hcl* (Zantac*) 150 Mg Tablet, 150 MG PO HS, #30 TAB 10/21/18 Digoxin* (Digitek*) 125 Mcg Tablet, 1 TAB ORAL DAILY 10/21/18 Prednisone* (Prednisone*) 5 Mg Tab, 1 TAB ORAL DAILY 10/21/18 Dronedarone Hydrochloride* (Multaq*) 400 Mg Tablet, 400 MG PO BID, TAB 10/21/18 Metformin* (Glucophage*) 500 Mg Tab, 500 MG PO WITH BREAKFAST LUNCH, #30 TAB 10/21/18 Apixaban* (Eliquis*) 2.5 Mg Tablet, 2.5 MG PO BID, TAB 10/21/18 Donepezil* (Aricept*) 5 Mg Tablet, 5 MG PO DAILY, TAB 10/21/18 Alprazolam* (Xanax*) 0.25 Mg Tablet, 0.25 MG PO TID PRN for ANXIETY, TAB 06/08/17 Paroxetine Hcl* (Paxil*) 30 Mg Tablet, 30 MG PO DAILY, TAB 06/08/17 Liothyronine Sodium* (Cytomel*) 5 Mcg Tablet, 5 MCG PO DAILY, TAB 06/08/17 Fluticasone Propionate* (Fluticasone Propionate* Nasal) 50 Mcg/[place] - 16 Gm [place].susp, 2 SPRAYS NASAL DAILY, #1 BOTTLE TO EACH NOSTRIL 06/08/17 Cinacalcet* (Sensipar*) 30 Mg Tab, 30 MG PO on wednesday, TAB 06/08/17 Ferrous Sulfate* (Ferrous Sulfate*) 325 Mg Tabec, 325 MG PO BID, TAB 06/08/17 Levothyroxine Sodium* (Levoxyl*) 25 Mcg Tablet, 25 MCG PO BEFORE BREAKFAST, #30 TAB 06/08/17 Furosemide* (Lasix*) 20 Mg Tablet, 20 MG PO DAILY, TAB 06/08/17 Ezetimibe* (Zetia*) 10 Mg Tablet, 10 MG PO HS, TAB 06/08/17 Discontinued Reported Medications Diltiazem Hcl* (Cardizem CD*) 180 Mg Cap.sr.24h, 180 MG PO DAILY, #30 CAP 06/08/17 Bifidobacterium Infantis (Align) 10.5 Mg Tab.chew, 10.5 MG PO QAM, TAB.CHEW 06/08/17 Pantoprazole* (Protonix*) 40 Mg Tablet.dr, 40 MG PO DAILY, TAB 06/08/17 Donepezil* (Aricept*) 5 Mg Tablet, 5 MG PO DAILY, TAB 06/08/17 Potassium Chloride* (Klor-Con*) 20 Meq Tabsr, 20 MEQ PO DAILY, TAB.SA 06/08/17 Memantine* (Namenda*) 5 Mg Tablet, 5 MG PO DAILY, #30 TAB 06/08/17 Metformin Hcl* (Metformin Hcl*) 500 Mg Tablet, 500 MG PO WITH BREAKFAST DINNE, #30 TAB 06/08/17 Medications Current Medications Vancomycin HCl (Vanco Iv Per Pharmacy) VANCOMYCIN PER PHARMACY PER PROTOCOL XX ; Start 10/21/18 at 10:00 Alprazolam (Xanax) 0.25 mg TID PRN PO ANXIETY Last administered on 10/22/18at 12:01; Admin Dose 0.25 MG; Start 10/21/18 at 10:00 Digoxin (Digoxin) 0.125 mg DAILY@1300 PO Last administered on 10/22/18at 12:01; Admin Dose 0.125 MG; Start 10/22/18 at 13:00 Donepezil HCl (Aricept) 5 mg DAILY PO Last administered on 10/22/18at 08:31; Admin Dose 5 MG; Start 10/22/18 at 09:00 Dronedarone (Multaq) 400 mg BID PO Last administered on 10/22/18at 08:30; Admin Dose 400 MG; Start 10/21/18 at 21:00 EZETIMIBE (Zetia) 10 mg HS PO Last administered on 10/21/18at 20:08; Admin Dose 10 MG; Start 10/21/18 at 21:00 Ferrous Sulfate (Ferrous Sulfate (Ec)) 325 mg BID PO Last administered on 10/22/18 08:30; Admin Dose 325 MG; Start 10/21/18 at 21:00 Furosemide (Lasix) 20 mg DAILY PO Last administered on 10/22/18 08:31; Admin Dose 20 MG; Start 10/22/18 at 09:00 Levothyroxine Sodium (Synthroid) 25 mcg BEFORE BREAKFAST PO Last administered on 10/22/18 06:49; Admin Dose 25 MCG; Start 10/22/18 at 07:00 Liothyronine Sodium (Cytomel) 5 mcg DAILY PO Last administered on 10/22/18 08:30; Admin Dose 5 MCG; Start 10/22/18 at 09:00 Ranitidine HCl (Zantac) 150 mg HS PO Last administered on 10/21/18 20:08; Admin Dose 150 MG; Start 10/21/18 at 21:00 Acetaminophen (Tylenol Tab) 650 mg Q4H PRN PO MILD PAIN(1-3)OR ELEVATED TEMP Last administered on 10/22/18 08:31; Admin Dose 650 MG; Start 10/21/18 at 10:30 Vancomycin HCl 1.25 gm/Sodium Chloride 250 ml @ 83.333 mls/ hr Q24H IVPB Last administered on 10/22/18 03:20; Admin Dose 83.333 MLS/HR; Start 10/22/18 at 04:00 Paroxetine HCl (Paxil) 30 mg QHS PO Last administered on 10/21/18 20:30; Admin Dose 30 MG; Start 10/21/18 at 21:00 Assessment/Plan Hospital Course (Demo Recall) 1. Sick sinus syndrome status post pacemaker 2. 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 Hypertension 4. Dyslipidemia 6. Asthma COPD Recommendation: We will DC the patient home. Continue home medication except hold Eliquis for 2 days Patient to follow-up with me in the office for pacer check and follow-up and wound check. Keep wound clean and dry Thank you for his referral. We will continue to follow along with you SHALOM GLEASON MD Oct 22, 2018 12:34
[2018-10-22] MEDS ORDERED: DIGOXIN 0.125 MG TAB PO SCH (13:00)
--- NOTE | 2018-10-22 17:59 | RADRPT ---
Vent Rate: 80 bpm RR Interval: 0 msec IN Interval: 0 msec QRS Duration: 136 msec QT Interval: 416 msec QTC Interval: 479 msec P-R-T [place]: 85 - -69 - 112 degrees Electronic ventricular pacemaker Electronically Signed By: Minor Mccoy
--- NOTE | 2018-10-22 18:03 | RADRPT ---
Vent Rate: 74 bpm RR Interval: 0 msec HI Interval: 240 msec QRS Duration: 92 msec QT Interval: 418 msec QTC Interval: 463 msec P-R-T [place]: 19 - -3 - 12 degrees Sinus rhythm with 1st degree AV block Incomplete right bundle branch block ST & T wave abnormality, consider anterior ischemia Abnormal ECG Electronically Signed By: Minor Mccoy
== END 2018-10-22 15:15 | disposition home or self-care (01) ==
LOC: SDS 05:52 → REC 11:24 → 6WM 11:40
PROVIDERS: ADMIT Internal Medicine Interventional Cardiology; ATTEND Internal Medicine Interventional Cardiology
DX: T82.120A Displacement of cardiac electrode, initial encounter (principal); Y83.8 Other surgical procedures as the cause of abnormal reaction of the patient, or of later complication, without mention of misadventure at the time of the procedure; I49.5 Sick sinus syndrome; I10 Essential (primary) hypertension; E78.5 Hyperlipidemia, unspecified; F41.8 Other specified anxiety disorders; E03.9 Hypothyroidism, unspecified; E87.0 Hyperosmolality and hypernatremia; Z23 Encounter for immunization
CPT/HCPCS: 33216; 33234; 71045; 80053; 80162; 82962; 85025; 85610; 85730; 90686; 93005; C1898; G0378; J2250; J3010; J3370; J7040; J7050; Q9967; 99217